=== PATIENT | male | born 1985 | race Caucasian/White ===

== ENCOUNTER 2017-01-16 13:51 | Emergency (ER) | payer OTHER ==
[2017-01-16 14:00] VITALS: BP 127/77; PULSE 78; RESP 17; TEMP 97.3; O2SAT 99
[2017-01-16] MEDS ORDERED: DEPA500T3 PO (14:31)
[2017-01-16] MEDS ORDERED: VENL75TA PO (14:31)
[2017-01-16] MEDS ORDERED: BUSP5TAB PO (14:31)
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
[2017-01-16] MEDS ORDERED: SODIUM CHLORIDE 0.9% FLUSH 10 ML FLUSH IVF PRN (14:45)
[2017-01-16 14:56] VITALS: O2SAT 98
[2017-01-16 15:03] LABS: AUTOMATED NEUTROPHIL # 4.7 TH/MM3 (1.8-7.7); BASOPHIL # 0.1 TH/MM3 (0-0.2); BASOPHIL % 1.1 % (0.0-2.0); EOSINOPHIL # 0.3 TH/MM3 (0-0.4); EOSINOPHIL % 3.9 % (0.0-4.0); HEMATOCRIT 41.2 % (39.0-51.0); HEMO FLAGS DIFF FINAL; LYMPH % 31.6 % (9.0-44.0); LYMPHOCYTE # 2.6 TH/MM3 (1.0-4.8); MEAN CELL VOLUME 83.7 FL (80.0-100.0); MEAN CORPUSCULAR HEMOGLOBIN 29.2 PG (27.0-34.0); MEAN CORPUSCULAR HGB CONC 34.9 % (32.0-36.0); MONO % 5.7 % (0.0-8.0); NEUT % 57.7 % (16.0-70.0); PLATELET COUNT 227 TH/MM3 (150-450); RED BLOOD COUNT 4.92 MIL/MM3 (4.50-5.90); RED CELL DISTRIBUTION WIDTH 14.2 % (11.6-17.2); WHITE BLOOD COUNT 8.2 TH/MM3 (4.0-11.0)
[2017-01-16 15:24] LABS: ANION GAP 7 MEQ/L (5-15); AST (GOT) 6 U/L (15-37); BICARBONATE 26.8 MEQ/L (21.0-32.0); BLOOD UREA NITROGEN 8 MG/DL (7-18); CHLORIDE 106 MEQ/L (98-107); GLOMERULAR FILTRATION RATE 70 ML/MIN (>89); POTASSIUM 3.9 MEQ/L (3.5-5.1); SODIUM (NA) 140 MEQ/L (136-145)
[2017-01-16 15:30] LABS: ALKALINE PHOSPHATASE 55 U/L (45-117); ALT (GPT) 13 U/L (12-78); TOTAL BILIRUBIN ADULT 0.3 MG/DL (0.2-1.0)
[2017-01-16 15:44] VITALS: BP 147/88; PULSE 74; RESP 17; O2SAT 99
[2017-01-16 15:55] LABS: BLOOD, URINE NEG (NEG); COMMENT (UR) CULT NOT INDICATED; CULTURE IF INDICATED CULT NOT INDICATED; GLUCOSE,URINE NEG (NEG); HYALINE CAST, URINE 4 /lpf (RARE); KETONE, URINE NEG (NEG); NITRITE,URINE NEG (NEG); URINE COLOR LIGHT-YELLOW (YELLW/STRAW)
[2017-01-16 15:58] LABS: AMPHETAMINE, URINE NEG (NEG); BARBITURATES, URINE NEG (NEG); COCAINE, URINE NEG (NEG)
[2017-01-16] MEDS ORDERED: SODIUM CHLOR 0.9% 1000 ML INJ 1,000 ML IV ONE (16:15)
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
--- NOTE | 2017-01-17 13:44 | EKG ---
Date Performed: 01/16/2017 Time Performed: 14:16:16 PTAGE: 31 years EKG: Sinus rhythm NORMAL ECG NO PREVIOUS TRACING DOCTOR: Rod Bardales Interpretating Date/Time 01/17/2017 13:38:25
== END 2017-01-16 17:17 | disposition home or self-care (01) ==
LOC: NEPE 13:51
DX: R55 Syncope and collapse (principal); R56.9 Unspecified convulsions; Z72.0 Tobacco use; V18.0XXA Pedal cycle driver injured in noncollision transport accident in nontraffic accident, initial encounter; Y93.55 Activity, bike riding; Y92.9 Unspecified place or not applicable; Y99.9 Unspecified external cause status
CPT/HCPCS: 70450; 80053; 80164; 80307; 81001; 85025; 93005; 99284; J7030